=== PATIENT | male | born 1950 | race Caucasian/White ===

== ENCOUNTER → 2018-09-10 | Outpatient (CLI) | payer MEDICARE, OTHER ==
[~2018-09-10] MED LIST: ASPI81TA27 PO; ATOR80TA PO; ISOS30TA4 PO; TICA1TAB PO
== END | disposition home or self-care (01) ==
LOC: Rad HDHVI 15:46
PROVIDERS: ATTEND Internal Medicine Cardiovascular Disease
DX: Z01.818 Encounter for other preprocedural examination (principal)
CPT/HCPCS: 71046

== ENCOUNTER → 2018-09-12 | Outpatient (CLI) | payer MEDICARE, OTHER ==
[2018-09-12 15:53] LABS: Basophils # (auto) 0.1 uL; Basophils % (auto) 0.9 % (0.0-2.0); Eosinophils # (auto) 0.1 uL; Eosinophils % (auto) 1.5 % (0.0-7.0); Hematocrit 48.1 % (41.0-53.0); Hemoglobin 16.2 g/dL (13.5-17.5); Lymphocytes # (auto) 2.2 uL; Lymphocytes % (auto) 22.4 % (10.0-50.0); Mean Corpuscular Hemoglobin 31.1 pg (28.0-32.0); Mean Corpuscular Hgb Conc. 33.7 g/dL (32.0-36.0); Mean Corpuscular Volume 92.2 fL (80.0-100.0); Monocytes # (auto) 0.8 uL; Neutrophils # (auto) 6.5 uL; Neutrophils % (auto) 67.2 % (37.0-80.0); Nucleated Red Blood Cells % 0.2 %; Platelet Count (auto) 230 10^3/uL (140-450); Red Blood Cells 5.22 10^6/uL (4.5-5.90); White Blood Cell 9.7 10^3/uL (4.4-10.8)
[2018-09-12 16:15] LABS: Potassium 4.4 mmol/L (3.5-5.1)
[2018-09-12 16:17] LABS: BUN/Creatinine Ratio 12.1; Calcium 9.5 mg/dL (8.5-10.1)
[2018-09-12 16:30] LABS: INR 0.93 (0.9-1.15); Partial Thromboplastin Time 28.7 sec (23.78-33.04)
== END | disposition home or self-care (01) ==
LOC: LAB 13:05
PROVIDERS: ATTEND Internal Medicine Cardiovascular Disease
DX: Z01.812 Encounter for preprocedural laboratory examination (principal); I10 Essential (primary) hypertension; D64.9 Anemia, unspecified; R79.1 Abnormal coagulation profile
CPT/HCPCS: 36415; 80048; 85025; 85610; 85730

== ENCOUNTER 2018-09-13 09:25 | Inpatient (IN) | payer MEDICARE, OTHER ==
[~2018-09-13] VITALS: Ht 185.4 cm; Wt 110.9 kg
[2018-09-13] MEDS ORDERED: ASPI81TA27 PO (10:37)
[2018-09-13] MEDS ORDERED: ATOR80TA PO (10:37)
[2018-09-13] MEDS ORDERED: ISOS30TA4 PO (10:37)
[2018-09-13] MEDS ORDERED: TICA1TAB PO (10:37)
[2018-09-13] MEDS ORDERED: IODIXANOL 320MG/ML 100ML BTL IV ONE (12:44)
[2018-09-13] MEDS ORDERED: LIDOCAINE 2%HCL (LOCAL ANESTH.) INJ 20ML MDV ONE (12:44)
[2018-09-13] MEDS ORDERED: MIDAZOLAM HCL 1MG/1ML-2 ML VIAL ONE (13:00)
[2018-09-13] MEDS ORDERED: ANGIOMAX 250 MG VIAL IV ONE ×2 (13:00→13:40)
[2018-09-13] MEDS ORDERED: SODIUM CHL 0.9% 50 ML ONE ×2 (13:00→13:40)
[2018-09-13] MEDS ORDERED: fentaNYL CITRATE 100 MCG/2 ML VL ONE (13:00)
[2018-09-13] MEDS ORDERED: DOPamine 1600MCG/ML D5W 0 ML IV ONE ×2 (13:00→13:01)
[2018-09-13] MEDS ORDERED: ATROPINE SULF 1 MG/10ml SYR ONE (13:00)
[2018-09-13] MEDS ORDERED: EPINEPHrine HCL 1 MG/10 ML SYRG ONE (13:00)
[2018-09-13] MEDS ORDERED: EPTIFIBATIDE INJ (2MG/ML) 10ML VIAL IV ONE (13:26)
[2018-09-13] MEDS ORDERED: NITROGLYCERIN 0.4 MG SL TAB SL PRN ×2 (15:15)
[2018-09-13] MEDS ORDERED: MORPHINE SULFATE 4 MG/ML SYR/VIAL IV PRN (15:15)
[2018-09-13] MEDS ORDERED: ONDANSETRON HCL 4 MG/2 ML VIAL IV PRN (15:15)
[2018-09-13] MEDS ORDERED: HYDROcodone-ACET 5/325MG TAB PO PRN (15:15)
[2018-09-13] MEDS ORDERED: ACETAMINOPHEN 500 MG TAB PO PRN (15:15)
[2018-09-13] MEDS ORDERED: ZOLPIDEM TARTRATE 5 MG TAB PO PRN (15:15)
[2018-09-13] MEDS ORDERED: ATORVASTATIN 20 MG TAB PO SCH (22:00)
[2018-09-13 23:55] VITALS: BP 160/85
[2018-09-14 04:59] VITALS: BP 133/66
[2018-09-14 07:40] VITALS: BP 136/69
[2018-09-14] MEDS ORDERED: ASPirin-EC 81 mg tab PO SCH (10:00)
[2018-09-14] MEDS ORDERED: RAMIPRIL 2.5 MG CAP PO SCH (10:00)
[2018-09-14] MEDS ORDERED: CLOPIDOGREL BISULFATE 75 MG TAB PO SCH (10:00)
[2018-09-14 11:52] VITALS: BP 121/76
[2018-09-14 11:57] VITALS: BP 121/76
== END 2018-09-14 13:31 | disposition home or self-care (01) | DRG 246 ==
LOC: CATH 09:25 → WEST WING 09:26
PROVIDERS: ADMIT Internal Medicine Cardiovascular Disease; ATTEND Internal Medicine Cardiovascular Disease
PROC: B2111ZZ Fluoroscopy of Multiple Coronary Arteries using Low Osmolar Contrast (ICD-10-PCS; principal; 2018-09-13)
PROC: 027 Heart and Great Vessels, Dilation (ICD-10-PCS; 2018-09-13)
PROC: 4A023N7 Measurement of Cardiac Sampling and Pressure, Left Heart, Percutaneous Approach (ICD-10-PCS; 2018-09-13)
PROC: B2111ZZ Fluoroscopy of Multiple Coronary Arteries using Low Osmolar Contrast (ICD-10-PCS; 2018-09-13)
DX: I21.09 ST elevation (STEMI) myocardial infarction involving other coronary artery of anterior wall (principal); I25.10 Atherosclerotic heart disease of native coronary artery without angina pectoris; E11.9 Type 2 diabetes mellitus without complications; E78.5 Hyperlipidemia, unspecified; I11.0 Hypertensive heart disease with heart failure; I50.9 Heart failure, unspecified; L50.9 Urticaria, unspecified
CPT/HCPCS: 92928; 93458; 99152; A6257; C1874; C1887; G0378; J2250; Q9967

== ENCOUNTER → 2018-12-13 | Outpatient (CLI) | payer MEDICARE, OTHER ==
[~2018-12-13] VITALS: Ht 185.4 cm; Wt 98.4 kg
[2018-12-13 12:15] LABS: Basophils # (auto) 0.1 uL; Basophils % (auto) 1.2 % (0.0-2.0); Eosinophils # (auto) 0.2 uL; Eosinophils % (auto) 2.4 % (0.0-7.0); Hematocrit 44.8 % (41.0-53.0); Hemoglobin 15.3 g/dL (13.5-17.5); Lymphocytes % (auto) 29.5 % (10.0-50.0); Mean Corpuscular Hemoglobin 31.2 pg (28.0-32.0); Mean Corpuscular Hgb Conc. 34.1 g/dL (32.0-36.0); Mean Corpuscular Volume 91.7 fL (80.0-100.0); Monocytes # (auto) 0.4 uL; Monocytes % (auto) 6.2 % (0.0-12.0); Neutrophils # (auto) 4.1 uL; Neutrophils % (auto) 60.7 % (37.0-80.0); Nucleated Red Blood Cells % 0.1 %; Platelet Count (auto) 213 10^3/uL (140-450); Red Blood Cells 4.89 10^6/uL (4.5-5.90); Red Cell Distribution Width 14.5 % (11.8-14.3); White Blood Cell 6.8 10^3/uL (4.4-10.8)
[2018-12-13 12:24] LABS: Calcium 8.7 mg/dL (8.5-10.1); Magnesium 2.3 mg/dL (1.6-2.6); Potassium 3.6 mmol/L (3.5-5.1)
[2018-12-13 12:29] LABS: BUN/Creatinine Ratio 13.8
[2018-12-13 12:35] LABS: INR 0.99 (0.9-1.15); Partial Thromboplastin Time 29.5 sec (23.78-33.04); Prothrombin Time 10.6 sec (9.27-12.13)
== END | disposition home or self-care (01) ==
LOC: Rad HDHVI 09:12
PROVIDERS: ATTEND Internal Medicine Cardiovascular Disease
DX: Z01.818 Encounter for other preprocedural examination (principal); I35.0 Nonrheumatic aortic (valve) stenosis; I70.0 Atherosclerosis of aorta; I11.9 Hypertensive heart disease without heart failure; D64.9 Anemia, unspecified; R79.1 Abnormal coagulation profile; I45.10 Unspecified right bundle-branch block; I63.9 Cerebral infarction, unspecified; I25.5 Ischemic cardiomyopathy
CPT/HCPCS: 36415; 71046; 78452; 80048; 83735; 85025; 85610; 85730; 93017; 93306; 96374; A9500

== ENCOUNTER 2018-12-18 07:18 | Day surgery (SDC) | payer MEDICARE, OTHER ==
[2018-12-18] MEDS ORDERED: LIDOCAINE 2%HCL (LOCAL ANESTH.) INJ 20ML MDV ONE (10:04)
[2018-12-18] MEDS ORDERED: IOHEXOL 350 MG/ML 100ML IJ ONE ×2 (10:04→10:38)
[2018-12-18] MEDS ORDERED: HEPARIN IN NS 1000Units/500mL 0 ML ONE (10:04)
[2018-12-18] MEDS ORDERED: ANGIOMAX 250 MG VIAL IV ONE (10:07)
[2018-12-18] MEDS ORDERED: SODIUM CHL 0.9% 0 ML ONE (10:08)
[2018-12-18] MEDS ORDERED: DOPamine 1600MCG/ML D5W 0 ML IV ONE (10:08)
[2018-12-18] MEDS ORDERED: ATROPINE SULF 1 MG/10ml SYR ONE (10:08)
[2018-12-18] MEDS ORDERED: GLYCOPYRROLATE 0.2 MG/ML 1ML VIAL ONE (10:08)
[2018-12-18] MEDS ORDERED: PHENYLEPHRINE HCL 10 MG/ML VL ONE (10:08)
== END 2018-12-18 13:30 | disposition home or self-care (01) ==
LOC: CATH 07:18
PROVIDERS: ATTEND Internal Medicine Cardiovascular Disease
DX: I65.21 Occlusion and stenosis of right carotid artery (principal); I10 Essential (primary) hypertension; E78.5 Hyperlipidemia, unspecified; Z98.890 Other specified postprocedural states; Z95.5 Presence of coronary angioplasty implant and graft; Z95.1 Presence of aortocoronary bypass graft; Z79.82 Long term (current) use of aspirin; Z79.899 Other long term (current) drug therapy
CPT/HCPCS: 36223; A6257; C1760; C1769; C1894; J7030; Q9967; 99152

== ENCOUNTER → 2020-06-15 | Outpatient (CLI) | payer MEDICARE, OTHER ==
[~2020-06-15] VITALS: Ht 185.4 cm; Wt 92.5 kg
[~2020-06-15] MED LIST changes: +ASPI-543 PO; -ASPI81TA27 PO
== END | disposition home or self-care (01) ==
LOC: Rad HDHVI 07:51
PROVIDERS: ATTEND Internal Medicine Cardiovascular Disease
DX: I25.10 Atherosclerotic heart disease of native coronary artery without angina pectoris (principal); E78.00 Pure hypercholesterolemia, unspecified
CPT/HCPCS: 78452; 93017; 93306; 96374; A9500

== ENCOUNTER → 2023-09-11 | Outpatient (CLI) | payer MEDICARE, OTHER ==
[~2023-09-11] VITALS: Ht 185.4 cm; Wt 90.7 kg
[~2023-09-11] MED LIST changes: +ISOS1TAB28 PO; -ISOS30TA4 PO
== END | disposition home or self-care (01) ==
LOC: Rad HDHVI 08:34
PROVIDERS: ATTEND Internal Medicine Cardiovascular Disease
DX: I08.3 Combined rheumatic disorders of mitral, aortic and tricuspid valves (principal); I11.9 Hypertensive heart disease without heart failure; I25.10 Atherosclerotic heart disease of native coronary artery without angina pectoris; E78.5 Hyperlipidemia, unspecified; E78.00 Pure hypercholesterolemia, unspecified
CPT/HCPCS: 78452; 93017; 93306; 96374; A9500